=== PATIENT | male | born 1965 | race Caucasian/White ===

== ENCOUNTER 2018-01-17 15:59 | Emergency (ER) | payer OTHER ==
[~2018-01-17] VITALS: Ht 170.2 cm; Wt 70.3 kg
[~2018-01-17 15:59] MED LIST: ALBUTEROL0.09 MG/A1 INH; ALPRAZOLAM1 M2 PO; AMITIZA24 MCG PO; ASPIRIN EC81 M1 PO; CYCLOBENZAPRINE10 M1 PO; DAILY VALUE1 EACH PO; FIBER625 MG PO; FOLIC ACID0.4 M1 PO; HYDROMORPHONE HC4 M1; LIDODERM1 EACH TOP; MEDROL DOSEPAK1 PAC PO; MOBIC15 M1 PO; NEURONTIN800 M2 PO; OXYCODONE HCL30 MG PO; OXYCONTIN (MONO40 MG PO; ROBITUSSIN W/CO10 ML PO; SERTRALINE HCL50 MG PO; SUMATRIPTAN SU100 M1 PO; SUMAVEL DO6 MG/0.5 M IM; TESSALON PERLE100 MG PO; VITAMIN C500 M6 PO; ZITHROMAX Z-PA250 M1 PO
[2018-01-17 16:16] VITALS: BP 120/63
--- NOTE | 2018-01-17 17:05 | RADIOLOGY REPORT ---
EXAMINATION: 1. Chest. 2. Bilateral ribs. CLINICAL INFORMATION: Fall. COMPARISON: Chest x-ray 01/25/2015 TECHNIQUE: 1. Chest. 2 views 2. Bilateral ribs: Expiratory PA chest. 3 views of the right ribs. 3 views of left ribs. FINDINGS: 1. Chest. Lungs are clear. No consolidation, pneumothorax, or pleural effusion. The cardiomediastinal silhouette and pulmonary vasculature are normal. There is orthopedic anchor present in the left glenoid of the shoulder 2. Bilateral ribs: There is no acute fracture. There are bilateral old healed rib fractures. There is healed fracture of the left seventh eighth and ninth ribs. There is a radiolucency for fracture transverse of the posterior right ninth rib but this has sclerotic margins consistent with a chronic nonunited fracture or subacute fracture. There is an adjacent healed fracture of the right ninth rib with callus formation. IMPRESSION: 1. No acute change of chest. 2. No acute fracture. There are bilateral healed rib fractures. The right posterior ninth rib has a subacute or chronic nonunited fracture.
--- NOTE | 2018-01-17 17:33 | RADIOLOGY REPORT ---
EXAMINATION: XR LUMBOSACRAL SPINE CLINICAL INFORMATION: Pain after fall. Evaluate lumbar spine and sacrum. COMPARISON: Lumbar MRI from 08/23/2017. TECHNIQUE: 4 views of the lumbosacral spine were obtained. FINDINGS: There are mild degenerative changes in the partially visualized lower thoracic spine. The lumbar vertebra have well preserved height and alignment. No evidence of acute fracture in the anterior or posterior elements. No evidence of spondylolysis, spondylolisthesis or vertebral compression fracture. There are anterior traction osteophytes at multiple levels of the lumbar spine. The L5-S1 disc space is chronically, mildly narrowed. There is chronic facet arthropathy of L4-L5. The sacrum, coccyx and sacroiliac joints are intact. IMPRESSION: 1. No acute findings within the degenerated lumbar spine compared to 08/23/2017. 2. The sacrum and coccyx are intact.
--- NOTE | 2018-01-17 18:57 | ED GENERAL ADULT ---
History of Present Illness General Chief Complaint: Lower Extremity Injury Stated Complaint: FELL WEDNESDAY, PAIN TO LOWER BACK Source: patient Exam Limitations: no limitations Vital Signs & Intake/Output Vital Signs & Intake/Output Vital Signs Date Time Temp Pulse Resp B/P B/P Pulse O2 O2 Flow FiO2 Mean Ox Delivery Rate 01/17 1616 96.7 87 18 120/63 97 Room Air Allergies Coded Allergies: No Known Allergies (05/21/17) Reconcile Medications Alprazolam 1 MG TABLET 1 TAB PO TID PRN ANXIETY (Reported) Ascorbate Calcium (Vitamin C) 500 MG TABLET 1 TAB PO DAILY SUPPLEMENT ( Reported) Aspirin (Ecotrin*) 81 MG TABLET.DR 1 TAB PO EOD HEART/BLOOD (Reported) Cyclobenzaprine HCl 10 MG TABLET 1 TAB PO TID PRN MUSCLE RELAXANT MAY CAUSE DROWSINESS Folic Acid 0.4 MG TABLET 1 TAB PO DAILY SUPPLEMENT (Reported) Gabapentin (Neurontin) 800 MG TABLET 1 TAB PO QHS SLEEP (Reported) Hydromorphone HCl (Unknown Strength) TABLET (Unknown Dose) UNKNOWN (Reported) Lidocaine (Lidoderm) 1 EACH ADH..PATCH 1 PAT TOP DAILY PRN pain may wear up to 12 hours Lubiprostone (Amitiza) 24 MCG CAPSULE 1 CAP PO BID PRN GI (Reported) Meloxicam (Mobic) 15 MG TABLET 1 TAB PO DAILY PRN PAIN/INFLAMMATION Multivitamin (Multi-Day Vitamins) 1 EACH TABLET 1 TAB PO DAILY SUPPLEMENT ( Reported) OXYCODONE HCL (Oxycodone HCl) 30 MG TABLET 1 TAB PO 4 TIMES/DAY PAIN ( Reported) Oxycodone HCL (Oxycontin (Monograph Only)) 40 MG TAB.ER.12H 1 TAB PO TID PAIN (Reported) Polycarbophil (Fiber) (Unknown Strength) TABLET (Unknown Dose) PO DAILY SUPPLEMENT (Reported) Sertraline HCl 50 MG TABLET 1 TAB PO DAILY MENTAL HEALTH (Reported) Sumatriptan Succinate (Sumavel Dosepro) 6 MG/0.5 ML NDL.FR.INJ 6 MG IM PRN MIGRAINES (Reported) Sumatriptan Succinate 100 MG TABLET 1 TAB PO AD PRN MIGRAINES (Reported) may repeat in 2 hours; do not exceed 200 mg in 24 hours Triage Note: PT TO ER C/C "MY SAID WHILE I WAS HAVING A NIGHT TERROR 2 NIGHTS AGO I STOOD ON MY HEAD AND SLAMMED BY BODY ON THE GROUND". NOW PATIENT STATES HE HAS RIGHT LOW BACK/RIB PAIN. PATIENT STATES HE HAS TOTAL NUMBNESS TO RIGHT LEG. STATES HE HAS BEEN SOAKING SELF IN TUB FOR PAIN RELIEF Triage Nurses Notes Reviewed? yes Onset: Abrupt Duration: day(s): Timing: constant HPI: 52 y/o male with h/o PTSD, depression, cluster headaches, multiple prior fx's presenting with low back pain and bilateral flank pain s/p fall out of bed x3 days ago. Reports he was having a nightmare 2/2 his PTSD and threw himself out of bed. Reports his body was slammed onto the floor, +head stike, but no LOC. Denies SINCLAIR, nausea, vomiting, visual changes. Not on any AC. Pt also endorses intermittent numbness and presthesias to the RLE. Denies urinary/bowel incontinence or retention. No saddle anesthesia. Has not been using any OTC meds for pain relief. (Genesis Gary) Past History Travel History Traveled to [place] past 21 day No Medical History Any Pertinent Medical History? 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 No (Genesis Gary) Review of Systems Review of Systems Constitutional: Reports: no symptoms. EENTM: Reports: no symptoms. Respiratory: Reports: no symptoms. Cardiovascular: Reports: no symptoms. GI: Reports: no symptoms. Genitourinary: Reports: no symptoms. Musculoskeletal: Reports: see HPI, back pain. Denies: neck pain. Skin: Reports: no symptoms. Neurological/Psychological: Reports: no symptoms. Hematologic/Endocrine: Reports: no symptoms. Immunologic/Allergic: Reports: no symptoms. (Genesis Gary) Physical Exam Physical Exam General Appearance: well developed/nourished, no apparent distress, alert, awake , comfortable Head: atraumatic, normal appearance Eyes: Bilateral: normal appearance, PERRL, EOMI. Ears, Nose, Throat: normal ENT inspection Neck: normal inspection, full range of motion, no midline tenderness Respiratory: normal breath sounds, chest non-tender, lungs clear, TTP over bilateral flanks, over both the ribs and intercostal muscles at multiple levels. 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 Skin: intact, normal color, warm/dry Core Measures ACS in differential dx? No CVA/TIA Diagnosis: No Sepsis Present: No Sepsis Focused Exam Completed? No (Genesis Gary) Progress Differential Diagnoses I considered the following diagnoses in my evaluation of the patient: [back contusion vs vertebral fx vs sacral fx vs radiculopathy vs rib contusion vs rib fx] Plan of Care: X-rays shows no acute fx, remarkable for multiple old rib fx's. Likely with back and flank contusions. Counseled on supportive care and ibuprofen use. Likely with radiculopathy to RLE, but because symptoms are intermittent not given course of steroids at this time. Will f/u with PMD and given strict return precautions. Initial ED EKG: none (Genesis Gary) Departure Departure Disposition: HOME OR SELF CARE Condition: Stable Clinical Impression Primary Impression: Back pain Secondary Impressions: Fall, Flank pain Referrals: Pola Oviedo DO (PCP/Family) Additional Instructions: Use ibuprofen as needed for pain. Follow up with your primary care provider for re-evaluation. Return to the emergency department for any new or worsening symptoms. Departure Forms: Customer Survey General Discharge Information (Genesis Gary) PA/ROBOTICS ENGINEER Co-Sign Statement Statement: ED Attending supervision documentation- [] I saw and evaluated the patient. I have also reviewed all the pertinent lab results and diagnostic results. I agree with the findings and the plan of care as documented in the GEOVANNI's/ROBOTICS ENGINEER's documentation. [X] I have reviewed the ED Record and agree with the PA's/ROBOTICS ENGINEER's documentation. [] Additions or exceptions (if any) to the PAs/ROBOTICS ENGINEER's note and plan are summarized below: [] (Mandi HALL,Blue Johnson) Critical Care Note Critical Care Note Critical Care Time: non-applicable (Genesis Gary)
[2018-04-07] MEDS ORDERED: HYDROCODON-ACE1 EAC1 PO (21:13)
[2018-04-07] MEDS ORDERED: CYCLOBENZAPRINE10 M1 PO (21:13)
[2018-04-07] MEDS ORDERED: ALPRAZOLAM2 M2 PO (21:13)
== END 2018-01-17 19:09 ==
LOC: ERH 15:59
DX: M54.5 Low back pain (principal); R10.32 Left lower quadrant pain; R10.31 Right lower quadrant pain
CPT/HCPCS: 71046; 71111; 72110

== ENCOUNTER 2018-01-25 23:18 | Inpatient (IN) | payer OTHER ==
[~2018-01-25] VITALS: Ht 165.1 cm; Wt 72.7 kg
[2018-01-26] VITALS: BP 117/80
[2018-01-26 00:09] LABS: ABSOLUTE BASOPHIL COUNT 0 /CUMM (0.0-0.2); ABSOLUTE EOSINOPHIL COUNT 0.1 /CUMM (0.0-0.7); ABSOLUTE GRANULOCYTE CT 7.5 /CUMM (1.4-6.5); ABSOLUTE LYMPH COUNT 3.1 /CUMM (1.2-3.4); ABSOLUTE MONOCYTE COUNT 0.8 /CUMM (0.10-0.60); BASOPHIL % 0.2 % (0.0-2.0); EOSINOPHIL % 1.2 % (0-5); GRANULOCYTE % 64.7 % (42.2-75.2); HEMATOCRIT 38.1 % (42-52); MEAN CORPUSCULAR HGB 29.1 PG (27.0-31.0); MEAN CORPUSCULAR HGB CONC 33.3 G/DL (33.0-37.0); MEAN CORPUSCULAR VOLUME 87.4 FL (80.0-94.0); MEAN PLATELET VOLUME 7.2 FL (7.4-10.4); PLATELET COUNT 373 /CUMM (130-400); RBC DISTRIBUTION WIDTH 13.8 % (11.5-14.5); RED BLOOD CELL CT 4.36 /CUMM (4.70-6.10); WHITE BLOOD CELL COUNT 11.6 /CUMM (4.8-10.8)
--- NOTE | 2018-01-26 00:16 | ED GENERAL ADULT ---
History of Present Illness General Chief Complaint: ETOH/Drug Related Complaint Stated Complaint: HERE FOR DETOX FROM ALCOHOL, BENZOS, AND PAIN MEDS Source: patient, old records Exam Limitations: no limitations Vital Signs & Intake/Output Vital Signs & Intake/Output Vital Signs Date Time Temp Pulse Resp B/P B/P Pulse O2 O2 Flow FiO2 Mean Ox Delivery Rate 01/27 0328 98.9 96 18 108/64 97 Room Air 01/27 0324 98.8 96 16 108/64 01/27 0042 99.4 107 18 116/68 97 Room Air 01/27 0030 99.4 107 18 116/68 01/26 2240 99.1 75 18 113/65 98 Room Air 01/26 2237 99.1 75 18 113/65 01/26 2025 98.9 90 18 112/78 01/26 202 98.9 90 18 112/78 97 Room Air 01/26 1236 97.6 74 18 109/61 98 Room Air 01/26 1151 97.3 77 18 113/55 98 Room Air 01/26 0955 97.9 78 18 104/54 98 01/26 0600 97.8 66 18 102/66 01/26 0600 97.8 66 18 102/66 98 Room Air ED Intake and Output 01/27 0000 01/26 1200 Intake Total Output Total Balance Patient 155 lb Weight Allergies Coded Allergies: No Known Allergies (05/21/17) Triage Nurses Notes Reviewed? yes HPI: Patient presents requesting detox from alcohol. Patient states that he also abuses opiates and benzos. His last use of benzos was 5 days ago. Patient states that he had a withdrawal seizure approximately 5 years ago and does not know if it was because of withdrawal from alcohol over from withdrawal from the benzos. Patient also thinks that he might of had a seizure this morning. Patient states he remembers being upstairs in the next thing he knew he was downstairs with a bloody nose. Patient does not know what happened in between. Patient currently just feels tremulous. He feels very anxious. There is no nausea or vomiting. He denies any chest pain. There is no suicidal or homicidal ideations. (Mandi HALL,Blue Johnson) Reconcile Medications Alprazolam 1 MG TABLET 1 TAB PO TID PRN ANXIETY (Reported) Ascorbate Calcium (Vitamin C) 500 MG TABLET 1 TAB PO DAILY SUPPLEMENT ( Reported) Aspirin (Ecotrin*) 81 MG TABLET. 1 TAB PO EOD HEART/BLOOD (Reported) Folic Acid 0.4 MG TABLET 1 TAB PO DAILY SUPPLEMENT (Reported) Multivitamin (Daily Value) 1 EACH TABLET 1 TAB PO DAILY VITAMIN SUPPORT ( Reported) (Miguel Heredia DO) Past History Travel History Traveled to [place] past 21 day No Medical History Any Pertinent Medical History? 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 No (Mandi HALL,Blue Johnson) Review of Systems Review of Systems Constitutional: Reports: no symptoms. EENTM: Reports: no symptoms. Respiratory: Reports: no symptoms. Cardiovascular: Reports: no symptoms. GI: Reports: no symptoms. Genitourinary: Reports: no symptoms. Musculoskeletal: Reports: no symptoms. Skin: Reports: no symptoms. Neurological/Psychological: Reports: see HPI, anxiety. Hematologic/Endocrine: Reports: no symptoms. Immunologic/Allergic: Reports: no symptoms. All Other Systems: Reviewed and Negative (Mandi HALL,Bule Johnson) Physical Exam Physical Exam General Appearance: well developed/nourished, alert, awake, anxious, mild distress Head: atraumatic, normal appearance Eyes: Bilateral: PERRL, EOMI. Ears, Nose, Throat: normal pharynx, normal ENT inspection, hearing grossly normal Neck: normal inspection, supple, full range of motion Respiratory: normal breath sounds, chest non-tender, no respiratory distress, lungs clear Cardiovascular: regular rate/rhythm, normal peripheral pulses Gastrointestinal: normal bowel sounds, soft, non-tender Back: normal inspection, normal range of motion Extremities: normal inspection, normal capillary refill, normal range of motion, no edema Neurologic/Psych: no motor/sensory deficits, awake, alert, oriented x 3, normal mood/affect Skin: intact, normal color, warm/dry Core Measures ACS in differential dx? No CVA/TIA Diagnosis: No Sepsis Present: No Sepsis Focused Exam Completed? No (Blue Raymond MD) Progress Differential Diagnoses I considered the following diagnoses in my evaluation of the patient: [ALCOHOL DEPENDENCY WITH WOTHDRAWAL, BENZO DEPENDENCY WOTH WITHDRAWAL, OPIATE DEPENDENCY WITH WITHDRAWAL] Plan of Care: Orders Procedure Date/time Status CASE MANAGEMENT CONSULT 01/27 0533 Active Current Medications Sig/Tonya Start time Last Medication Dose Stop Time Status Admin Lorazepam 1 MG Q2 PRN 01/27 0345 UNVr 01/27 (Ativan) 0338 Lorazepam 2 MG Q2P PRN 01/27 0345 UNVr (Ativan) Gabapentin 300 MG Q8 01/26 0047 UNVr 01/26 (Neurontin) 2236 Initial ED EKG: none Hand-Off Endorsed To: Miguel Heredia DO Endorsed Time: 07 Pending: consult, other (RE-EVAL) (Blue Raymond MD) Differential Diagnoses I considered the following diagnoses in my evaluation of the patient: Hand-Off Endorsed To: Blue Raymond MD Endorsed Time: 07 Pending: other (case management,CIWA) (Issac Holcomb MD) Departure Departure Disposition: STILL A PATIENT Condition: Stable Clinical Impression Primary Impression: Alcohol dependency Secondary Impressions: Benzodiazepine abuse Referrals: Pola Oviedo DO (PCP/Family) Departure Forms: Customer Survey General Discharge Information (Blue Raymond MD) Departure Comments 01/26/18 7:18 PM The CIWA scores have been low. Motrin given for the chronic hip pain. He will try to call [facility] for intake. The patient was signed out to Dr. Holcomb at 7:20 PM. (Miguel Heredia DO) Critical Care Note Critical Care Note Critical Care Time: non-applicable (Blue Raymond MD) Critical Care Note Critical Care Note Critical Care Time: non-applicable (Blue Raymond MD)
[2018-01-26 02:00] VITALS: BP 115/70
[2018-01-26 04:03] VITALS: BP 113/65
[2018-01-26 06:00] VITALS: BP 102/66
[2018-01-26 20:25] VITALS: BP 112/78
[2018-01-26 22:37] VITALS: BP 113/65
[2018-01-27] VITALS (9 sets, daily range): BP systolic 98–122; BP diastolic 57–84
--- NOTE | 2018-01-27 13:37 | History & Physical ---
[facility]: General Information and HPI MD Statement: I have seen and personally examined MARTIN MONTALVO and documented this H&P. The patient is a 52 year old M who presented with a patient stated chief complaint of anxiety, tremors, nausea, vomiting for last couple of days. []. Source of Information: patient, old records Exam Limitations: no limitations History of Present Illness: 52 YO M nonsmoker with PMH of cluster headache, bronchitis, depression, PTSD, opiate abuse, benzo abuse, cannabis abuse and multiple surgeries due to trauma came to ED for alcohol detox. Patient reported that he is drinking alcohol since the age of 13 years. He is drinking 6 packs of beer or whiskey everyday. Patient reported that last time he drank home last Wednesday between 5 PM to 11 PM. According to patient he drank 6 packs of beer and 1 paint of whiskey. On Wednesday he he decided to quit drinking and came to ED requesting alcohol detox. Before coming to the hospital patient reported that he thought hurting himself but there was no plan. Since Wednesday he is having anxiety, tremors, nausea and he threw up a couple of times. Patient also reported epigastric pain 4/10 nonradiating and increasing with eating and drinking. Patient also reported having headache 7/10. Patient denied chest pain, palpitation, blood in vomitus, hemoptysis, hematuria, chills, fever, orthopnea, shortness of breath, suicidal ideation and dysuria. Patient also reported that he has PTSD and he is following his psychiatrist who was prescribing him Xanax to treat PTSD. 15 years back he developed withdrawal seizures from Xanax and he was admitted to ICU and intubated. He never been admitted to hospital for alcohol detox in the past. According to patient he never developed alcoholic-induced seizures in the past. According to patient he remained sober between last therapy in November but later on he again started to drink. In the past patient reported that he was on OxyContin 300 mg daily and oxycodone 3 mg 5 his hip and leg pain. For opiate prescription he was following a pain management clinic and then 12 years back they discontinued his opiates. ED course: Vitals: Temperature 97.8, pulse 66, respiratory rate 18, blood pressure 102/66, oxygen saturation 98% on room air Labs: WBC count 11.6, hemoglobin 12.7, hematocrit 38.1, platelet count 373, sodium 143, potassium 4.0, anion gap 13, BUN 24, creatinine 1.0, glucose 71, AST 18, ALT 27, alkaline phosphatase 82, total bilirubin 0.3 Allergies/Medications Allergies: Coded Allergies: No Known Allergies (05/21/17) Home Med list Alprazolam 1 MG TABLET 1 TAB PO TID PRN ANXIETY (Reported) Ascorbate Calcium (Vitamin C) 500 MG TABLET 1 TAB PO DAILY SUPPLEMENT ( Reported) Aspirin (Ecotrin*) 81 MG TABLET.DR 1 TAB PO EOD HEART/BLOOD (Reported) Folic Acid 0.4 MG TABLET 1 TAB PO DAILY SUPPLEMENT (Reported) Multivitamin (Daily Value) 1 EACH TABLET 1 TAB PO DAILY VITAMIN SUPPORT ( Reported) Past History Travel History Traveled to [place] past 21 day No Medical History Neurological: CLUSTER HEADACHES EENT: NONE Cardiovascular: NONE Respiratory: bronchitis Gastrointestinal: NONE Hepatic: NONE Renal: NONE Musculoskeletal: fracture, R LEG FX/TITANIUM JESSICA AVASCULAR NECROSIS Psychiatric: depression, PTSD Endocrine: NONE Blood Disorders: NONE Cancer(s): NONE 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 EENTM: Reports: no symptoms. Cardiovascular: Denies: chest pain, palpitations, syncope. Respiratory: Denies: cough, short of breath, sputum production. GI: Reports: abdominal pain, constipation, nausea, vomiting. Denies: diarrhea, bloody stool. Genitourinary: Reports: no symptoms. Musculoskeletal: Reports: no symptoms. Neurological/Psychological: Reports: anxiety. Exam & Diagnostic Data Last 24 Hrs of Vital Signs/I&O Vital Signs Date Time Temp Pulse Resp B/P B/P Pulse O2 O2 Flow FiO2 Mean Ox Delivery Rate 01/28 0530 98.4 72 18 116/72 97 Room Air 01/28 0130 98.8 78 18 118/72 98 Room Air 01/28 0000 98.6 77 18 120/70 01/27 2132 98.6 77 18 120/70 97 01/27 1752 97.8 85 20 120/84 98 01/27 1631 98.2 73 16 114/72 01/27 1631 98.2 73 16 114/72 99 Room Air 01/27 1436 98.0 77 20 113/72 98 01/27 1435 98.0 77 20 113/72 01/27 1221 98.6 78 20 122/70 98 01/27 1219 98.6 78 20 122/70 01/27 0830 98.0 78 18 98/57 97 01/27 0829 98.0 78 20 98/57 Intake & Output 01/28 0800 01/28 0000 01/27 1600 Intake Total 480 Output Total Balance 480 Intake, Oral 480 Patient 160 lb 161 lb Weight Weight Bed scale Measurement Method Physical Exam General Appearance Alert, Oriented X3, Cooperative Skin No Rashes Skin Temp/Moisture Exam: Warm/Dry Sepsis Skin Exam (color): Normal for Ethnicity HEENT Atraumatic, PERRLA, EOMI Neck Supple Cardiovascular Normal S1, Normal S2 Lungs Clear to Auscultation Abdomen Soft, No Tenderness Neurological Normal Speech, Strength at 5/5 X4 Ext, Normal Tone Extremities No Edema Assessment/Plan Assessment: 52 YO M nonsmoker with PMH of cluster headache, bronchitis, depression, PTSD and multiple surgeries due to trauma came to ED for alcohol detox. We will admit the patient on general medicine floor for following problems: Alcohol detox: -Keep him on CIWA protocol and we will give him 2 mg Ativan every 6 hourly. -Gentle IV hydration as needed -Zofran IV as needed for nausea and vomiting -Supplemental vitamin B12, folic acid and thiamine -Seizure precautions -Omeprazole for gastric ulcer prophylaxis History of PTSD: -Psychiatric consult DVT prophylaxis: Mechanical and subcutaneous Lovenox CODE STATUS: Full code As Ranked By This Provider Problem List: 1. Alcohol withdrawal Core Measures/Misc (05/30) Acute Coronary Syndrome ACS Diagnosis: No Congestive Heart Failure Congestive Heart Failure Diagnosis No Cerebrovascular Accident CVA/TIA Diagnosis: No VTE (View Protocol) VTE Risk Factors Age>40 No Mechanical VTE Prophylaxis d/t N/A MechProphylax Ordered No VTE Pharm Prophylaxis d/t NA PharmProphylax ordered Sepsis (View protocol) Sepsis Present: No Donita Tejada 01/27/18 1558: Resident Review Statement Resident Statement: examined this patient, discussed with technology internship, agreed with technology internship Other Findings: Patient is a 52-year-old gentleman with past medical history significant for PTSD alcohol abuse/withdrawal, benzos related seizures, multiple surgeries, history of opioid abuse presented to the ER requesting alcohol detox. Patient mentioned that he has been on Xanax 4 mg daily for PTSD, he stopped taking the medication this past Wednesday, was drinking heavily almost 6-12 cans of beer per day and 1 pint of whiskey per day. Patient reported that before coming to the ER he was having suicidal thoughts, denied any visual or auditory hallucinations, had bilateral hand tremors with sweating, palpitations and shortness of breath. He got extremely anxious,and came to the ER on Wednesday requesting detox. As mentioned above patient has a history of benzos withdrawal related seizures many years ago requiring hospitalization. Since then patient has been taking Xanax 8 mg(now 4 mg) prescribed by her psychiatrist. He also had a history of Vitals on admission unremarkable temperature 98.8, pulse 90, respiratory rate 18 , blood pressure 112/78 on room air General Appearance: Alert, appears slightly anxious with bilateral hand tremors Skin: Grossly normal HEENT: PEERLA Neck: Supple, No JVD Cardiovascular: Regular Rate, Normal S1, Normal S2, No Murmurs Lungs: Clear to Auscultation, Normal Air Movement Abdomen: Normal Bowel Sounds, slight abdominal tenderness. Neurological: Normal Speech, Strength at 5/5 X4 Ext, Cranial Nerves 3-12 NL, Reflexes 2+ Extremities: No edema bilaterally Vascular: Normal Pulses Pertinent labs on admission slight leukocytosis at 11.6 without any bandemia Normal chemistries with slightly elevated BUN likely due to dehydration Assessment Alcohol dependence/withdrawl. Benzos related seizures History of opioid abuse History of PTSD History of anxiety depression History of cluster headaches History of cannabis abuse plan Alcohol dependence/withdrawl. * Admit the patient to the GenMed floor * Start the patient on scheduled Ativan 2 mg every 6 hours along with Ativan as needed per [facility] protocol. * Start thiamine and folate and vitamin B12's * Seizure and fall precautions * Obtain psych consult in the morning * Social consult * Promote oral hydration * Zofran as needed for nausea * History of benzos related to seizures * Hold Xanax during the hospitalization continue with Ativan. DVT prophylaxis with Lovenox Pain control with Tylenol Patient is full code
--- NOTE | 2018-01-27 16:23 | Admission Certification ---
Admission Certification Certification Statement - As attending physician, I certify that at the time of - admission, based on clinical presentation, severity of - symptoms, need for further diagnostic testing and - therapeutic interventions, and risk of adverse outcomes - without in-hospital treatment, in my clinical assessment, - this patient requires an acute hospital stay for a minimum - of two nights or longer. I have also considered psychsocial - factors such as support system, advanced age, financial - issues, cognitive issues, and failed out-patient treatments, - past re-admission history, safety of patient, and lack of - compliance as applicable. Specific rationale supporting this admission is: Alcohol narcotic and benzo abuse
--- NOTE | 2018-01-27 16:23 | PN- Att Addend ---
Attending Addendum Attending Brief Note Patient seen and examined. Plan of care discussed with the medical team and the patient. Available lab work and radiology test reports were reviewed. Patient is a 52-year-old male who has been abusing OxyContin up to 80 mg daily, Xanax up to 8 mg daily which he stopped about 1 week ago and has been using alcohol in heavy amounts with about 6-12 cans of beer per day and 1 pint of whiskey per day. He never underwent a rehabilitation and now is interested in detox and rehabilitation of his drug and alcohol problems. Patient also carries a diagnosis of PTSD. He currently does not smoke and does not work and lives with his and children. Family hx was reviewed. Vital Signs Date Time Temp Pulse Resp B/P B/P Pulse O2 O2 Flow FiO2 Mean Ox Delivery Rate 01/27 1436 98.0 77 20 113/72 98 01/27 1435 98.0 77 20 113/72 01/27 1221 98.6 78 20 122/70 98 01/27 1219 98.6 78 20 122/70 01/27 0830 98.0 78 18 98/57 97 01/27 0829 98.0 78 20 98/57 01/27 0601 97.8 71 18 106/68 95 Room Air 01/27 0524 97.8 71 18 106/68 01/27 0328 98.9 96 18 108/64 97 Room Air 01/27 0324 98.8 96 16 108/64 01/27 0042 99.4 107 18 116/68 97 Room Air 01/27 0030 99.4 107 18 116/68 01/26 2240 99.1 75 18 113/65 98 Room Air 01/26 2237 99.1 75 18 113/65 01/26 2025 98.9 90 18 112/78 01/26 2025 98.9 90 18 112/78 97 Room Air Exam: General: Patient awake alert oriented without any distress; he is tremulous CVS: S1 plus S2 without any murmur or gallops Chest: Few scattered crepitation without any wheeze. There is no respiratory distress. Abdomen: Soft non-tender, bowel sound present, no guarding or rebound; tremors of both hands are noted SENIOR C DEVELOPER: Awake alert oriented without any focal neuro deficit and follows commands appropriately Extremities: No edema; no clubbing or cyanosis noted Laboratory Tests 01/26/18 0006: Urine Opiates Screen > 4000.00 H, Methadone Screen < 40, Barbiturate Screen < 60, Ur Phencyclidine Scrn < 6.00, Amphetamines Screen < 100, U Benzodiazepines Scrn < 85, Urine Cocaine Screen < 50, Urine Cannabis Screen > 80.00 H 01/25/18 2358: Anion Gap 13, Estimated GFR > 60, BUN/Creatinine Ratio 24.0, Glucose 71, Calcium 9.7, Total Bilirubin 0.3, AST 18, ALT 27, Alkaline Phosphatase 82, Total Protein 7.6, Albumin 4.5, Globulin 3.1, Albumin/Globulin Ratio 1.5, CBC w Diff NO MAN DIFF REQ, RBC 4.36 L, MCV 87.4, MCH 29.1, MCHC 33.3, RDW 13.8, MPV 7.2 L, Gran % 64.7, Lymphocytes % 26.6, Monocytes % 7.3, Eosinophils % 1.2, Basophils % 0.2, Absolute Granulocytes 7.5 H, Absolute Lymphocytes 3.1, Absolute Monocytes 0.8 H, Absolute Eosinophils 0.1, Absolute Basophils 0, Serum Alcohol < 10.0 Assessment * Alcohol abuse * Narcotic abuse with OxyContin * Residents been abuse with Xanax which he stopped about 7 days ago on his own * Cannabis abuse * History of PTSD * History of depression * History of cluster headaches Plan * [facility] protocol and start patient on 2 mg Ativan every 6 hours by mouth * 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
--- NOTE | 2018-01-27 17:23 | Incdntl Nt Psy ---
Incidental Note Notation: H & P request to see pt in am noted. DANITZA
[2018-01-28] VITALS (10 sets, daily range): BP systolic 116–122; BP diastolic 70–80
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
[2018-01-28 09:33] LABS: ABSOLUTE BASOPHIL COUNT 0 /CUMM (0.0-0.2); ABSOLUTE EOSINOPHIL COUNT 0.1 /CUMM (0.0-0.7); ABSOLUTE GRANULOCYTE CT 8.8 /CUMM (1.4-6.5); ABSOLUTE LYMPH COUNT 2.8 /CUMM (1.2-3.4); BASOPHIL % 0.4 % (0.0-2.0); EOSINOPHIL % 1.1 % (0-5); GRANULOCYTE % 68.4 % (42.2-75.2); HEMATOCRIT 41.4 % (42-52); MEAN CORPUSCULAR HGB 29.2 PG (27.0-31.0); MEAN CORPUSCULAR HGB CONC 33.1 G/DL (33.0-37.0); MEAN CORPUSCULAR VOLUME 88.2 FL (80.0-94.0); MEAN PLATELET VOLUME 7.8 FL (7.4-10.4); PLATELET COUNT 369 /CUMM (130-400); RBC DISTRIBUTION WIDTH 14.4 % (11.5-14.5); RED BLOOD CELL CT 4.69 /CUMM (4.70-6.10); WHITE BLOOD CELL COUNT 12.8 /CUMM (4.8-10.8)
--- NOTE | 2018-01-28 10:30 | PN- Att Addend ---
Attending Addendum Attending Brief Note Patient seen and examined. Plan of care discussed with the medical team and the patient. Available lab work and radiology test reports were reviewed. Patient appears fidgety and restless and anxious. He was not able to sleep last night. He has visible tremors of his hands. CIWA score range between 0-11. Exam: General: Patient awake alert oriented without any distress; he is tremulous CVS: S1 plus S2 without any murmur or gallops Chest: Few scattered crepitation without any wheeze. There is no respiratory distress. Abdomen: Soft non-tender, bowel sound present, no guarding or rebound; tremors of both hands are noted PRACTICE MANAGEMENT CONSULTANT: Awake alert oriented without any focal neuro deficit and follows commands appropriately Extremities: No edema; no clubbing or cyanosis noted Assessment Patient is a 52-year-old male who has been abusing OxyContin up to 80 mg daily, Xanax up to 8 mg daily which he stopped about 1 week ago and has been using alcohol in heavy amounts with about 6-12 cans of beer per day and 1 pint of whiskey per day. He never underwent a rehabilitation and now is interested in detox and rehabilitation of his drug and alcohol problems. Patient also carries a diagnosis of PTSD. 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 * Continue folic acid Current Medications Sig/Tonya Start time Last Medication Dose Route Stop Time Status Admin Acetaminophen 650 MG Q6 PRN 01/27 1515 AC PO Aspirin Buffered 81 MG DAILY 01/28 0900 AC PO Baclofen 10 MG ONCE ONE 01/28 0415 DC 01/28 PO 01/28 0416 0645 Diclofenac Sodium 1 TATIANA 4 TIMES/DAY PRN 01/28 0015 AC 01/28 TOP 0208 Enoxaparin Sodium 40 MG DAILY 01/28 0900 AC 01/28 SC 0939 Folic Acid 0 .STK-MED ONE 01/27 1605 DC PO Folic Acid 1 MG DAILY 01/27 1510 AC 01/28 PO 0937 Gabapentin 0 .STK-MED ONE 01/27 1438 DC PO Gabapentin 300 MG Q8 01/26 0047 DC 01/27 PO 1435 Lorazepam 3 MG Q6 01/28 1200 AC PO Lorazepam 2 MG Q6 01/27 1800 DC 01/28 PO 0645 Lorazepam 0 Q1P PRN 01/27 1600 AC 01/28 IV 0208 Lorazepam 1 MG Q2 PRN 01/27 0345 DC 01/27 PO 0605 Lorazepam 2 MG Q2P PRN 01/27 0345 DC PO Multivitamins 0 .STK-MED ONE 01/27 1605 DC PO Multivitamins 1 TAB DAILY 01/27 1514 AC 01/28 Therapeutic PO 0938 Thiamine HCl 0 .STK-MED ONE 01/27 1605 DC PO Thiamine HCl 100 MG DAILY 01/27 1510 AC 01/28 PO 0938 Laboratory Tests 01/28/18 0616: Anion Gap 13, Estimated GFR > 60, BUN/Creatinine Ratio 22.5, CBC w Diff NO MAN DIFF REQ, RBC 4.69 L, MCV 88.2, MCH 29.2, MCHC 33.1, RDW 14.4, MPV 7.8, Gran % 68.4, Lymphocytes % 22.2, Monocytes % 7.9, Eosinophils % 1.1, Basophils % 0.4, Absolute Granulocytes 8.8 H, Absolute Lymphocytes 2.8, Absolute Monocytes 1.0 H, Absolute Eosinophils 0.1, Absolute Basophils 0 01/26/18 0006: Urine Opiates Screen > 4000.00 H, Methadone Screen < 40, Barbiturate Screen < 60, Ur Phencyclidine Scrn < 6.00, Amphetamines Screen < 100, U Benzodiazepines Scrn < 85, Urine Cocaine Screen < 50, Urine Cannabis Screen > 80.00 H 01/25/18 8218: Anion Gap 13, Estimated GFR > 60, BUN/Creatinine Ratio 24.0, Glucose 71, Calcium 9.7, Total Bilirubin 0.3, AST 18, ALT 27, Alkaline Phosphatase 82, Total Protein 7.6, Albumin 4.5, Globulin 3.1, Albumin/Globulin Ratio 1.5, CBC w Diff NO MAN DIFF REQ, RBC 4.36 L, MCV 87.4, MCH 29.1, MCHC 33.3, RDW 13.8, MPV 7.2 L, Gran % 64.7, Lymphocytes % 26.6, Monocytes % 7.3, Eosinophils % 1.2, Basophils % 0.2, Absolute Granulocytes 7.5 H, Absolute Lymphocytes 3.1, Absolute Monocytes 0.8 H, Absolute Eosinophils 0.1, Absolute Basophils 0, Serum Alcohol < 10.0 Vital Signs Date Time Temp Pulse Resp B/P B/P Pulse O2 O2 Flow FiO2 Mean Ox Delivery Rate 01/28 0941 98.0 77 20 122/70 96 Room Air 01/28 0530 98.4 72 18 116/72 97 Room Air 01/28 0130 98.8 78 18 118/72 98 Room Air 01/28 0000 98.6 77 18 120/70 01/27 2132 98.6 77 18 120/70 97 01/27 1752 97.8 85 20 120/84 98 01/27 1631 98.2 73 16 114/72 01/27 1631 98.2 73 16 114/72 99 Room Air 01/27 1436 98.0 77 20 113/72 98 01/27 1435 98.0 77 20 113/72 01/27 1221 98.6 78 20 122/70 98 01/27 1219 98.6 78 20 122/70 Intake & Output 01/28 1600 01/28 0800 01/28 0000 Intake Total 480 Output Total Balance 480 Intake, Oral 480 Patient 160 lb 161 lb Weight Weight Bed scale Measurement Method
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
--- NOTE | 2018-01-28 16:23 | Incdntl Nt Psy ---
Incidental Note Notation: I spoke to Maria Del Carmen regarding patient's safety. She is moving out but has not heard him make concerning statements regarding hurting himself or others and he has not texted her anything concerning. He is using drugs and becomes belligerent when he is out.
[2018-01-29] VITALS (8 sets, daily range): BP systolic 106–134; BP diastolic 64–88
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
[2018-01-30] VITALS (9 sets, daily range): BP systolic 100–134; BP diastolic 54–90
--- NOTE | 2018-01-30 10:15 | PN- Housestaff ---
Bhavin HALL,Georgette 01/30/18 1015: Subjective Follow-up For: Alcohol withdrawal PTSD Anxiety Subjective: Patient states that he is feeling more anxious, still shaky from yesterday, a little nauseous, continues to have on and off abdominal pain, 3 episodes of diarrhea today, current headache, patient is tolerating diet. His last CIWA score was 8 for nausea, vomiting, tremor, anxiety. Review of Systems Constitutional: Reports: no symptoms. EENTM: Reports: no symptoms. Cardiovascular: Reports: no symptoms. Respiratory: Reports: no symptoms. Gastrointestinal: Reports: abdominal pain, diarrhea, nausea. Genitourinary: Reports: no symptoms. Musculoskeletal: Reports: back pain. Skin: Reports: no symptoms. Neurological/Psychological: Reports: anxiety, headache. Objective Last 24 Hrs of Vital Signs/I&O Vital Signs Date Time Temp Pulse Resp B/P B/P Pulse O2 O2 Flow FiO2 Mean Ox Delivery Rate 01/30 1158 98.0 91 20 100/60 97 01/30 1041 98.5 74 18 100/60 96 01/30 0800 Room Air 01/30 0721 97.8 88 16 100/66 99 Room Air 01/30 0224 98.9 84 18 120/90 94 Room Air 01/30 0200 98.9 84 18 120/90 01/30 0142 99.7 96 20 134/80 94 Room Air 01/30 0100 99.7 96 20 130/80 01/29 2235 97.9 86 16 106/64 99 Room Air 01/29 2200 97.7 86 16 106/64 01/29 1913 98.9 88 16 120/80 98 Room Air 01/29 1730 98.7 74 18 110/88 01/29 1425 97.8 81 18 134/84 97 Room Air Intake & Output 01/30 1600 01/30 0800 01/30 0000 Intake Total 510 620 Output Total Balance 510 620 Intake, IV 30 20 Intake, Oral 480 600 Physical Exam General Appearance: Alert, Oriented X3, Cooperative, No Acute Distress Skin: No Rashes, No Breakdown, No Significant Lesion Skin Temp/Moisture Exam: Warm/Dry Sepsis Skin Exam (color): Normal for Ethnicity HEENT: Atraumatic, EOMI, Mucous Membr. moist/pink Cardiovascular: Regular Rate, Normal S1, Normal S2, No Murmurs Lungs: Clear to Auscultation, Normal Air Movement Abdomen: Normal Bowel Sounds, No Hepatospenomegaly, No Masses, tender to palpation in the epigastric area Neurological: Normal Speech Extremities: No Clubbing, No Cyanosis, No Edema, Normal Pulses, No Tenderness/ Swelling Current Medications: Current Medications Sig/Tonya Start time Last Medication Dose Route Stop Time Status Admin Acetaminophen 650 MG .STK-MED ONE 01/29 2129 DC PO 01/29 2130 Acetaminophen 650 MG Q6 PRN 01/27 1515 AC 01/29 PO 2131 Aspirin Buffered 81 MG DAILY 01/28 0900 AC 01/30 PO 0851 Baclofen 10 MG TID 01/30 1034 AC 01/30 PO 1057 Baclofen 10 MG ONCE ONE 01/290 DC 01/29 PO 01/29 Diclofenac Sodium 1 TATIANA 4 TIMES/DAY PRN 01/28 0015 AC 01/28 TOP 0208 Enoxaparin Sodium 40 MG DAILY 01/28 0900 AC 01/30 SC 0851 Folic Acid 1 MG DAILY 01/27 1510 AC 01/30 PO 0851 Lorazepam 3 MG Q6 01/28 1200 AC 01/30 PO 1207 Lorazepam 0 Q1P PRN 01/27 1600 AC 01/30 IV 0116 Multivitamins 1 TAB DAILY 01/27 1514 AC 01/30 Therapeutic PO 0851 Omeprazole 40 MG DAILY AC 01/30 1034 AC 01/30 PO 1057 Ondansetron HCl 4 MG ONCE ONE 01/30 1045 DC 01/30 PO 01/30 1046 1057 Thiamine HCl 100 MG DAILY 01/27 1510 AC 01/30 PO 0851 Orders CIWA Score (last 24 hrs): 8 Assessment/Plan Assessment: 52 YO M nonsmoker with PMH of cluster headache, bronchitis, depression, PTSD and multiple surgeries due to trauma came to ED for alcohol detox. We are seeing the patient for following problems: Alcohol detox: -Keep him on CIWA protocol and we will continue Ativan to 3 mg every 6 hourly considering his anxiety and tremors that are continuing -We will encourage the patient to drink orally. -Zofran for nausea and vomiting -Supplemental vitamin B12, folic acid and thiamine -Seizure precautions -Hepatitis panel is negative Epigastric pain: - states that he gets this kind of pain usually a day after he has alcohol binges. This is most likely gastritis and we will start omeprazole 40 mg daily. Anxiety: -Probably due to alcohol withdrawal or could be generalized anxiety disorder. -As per psychiatry the patient's Maria Del Carmen, who is moving out, states that he has never made a concerning statements regarding hurting himself or others. -Patient is already getting Ativan History of PTSD: -Patient was on Xanax in the past for PTSD and he recently discontinued Xanax a week ago. He is to have Ativan discontinued upon discharge. -Follow-up psychiatry recommendations -Headache: has normal liver function tests so we will dose Tylenol 650 mg for his headaches DVT prophylaxis: Mechanical and subcutaneous Lovenox CODE STATUS: Full code Problem List: 1. PTSD (post-traumatic stress disorder) 2. Anxiety 3. Alcohol withdrawal Pain Ratin Pain Location: back Pain Goal: Pain 4 or less Pain Plan: pathway Tomorrow's Labs & Rationales: isabel Stoddard MD,Amir 01/30/18 1201: Attending MD Review Statement Attending Statement Attending MD Statement: examined this patient, discuss w/resident/PA/BEEF BREAKER, agreed w/resident/PA/BEEF BREAKER, reviewed EMR data (avail), discussed with nursing Attending Assessment/Plan: Reports doing better, no overnight. Tolerating meds OK --cont to taper ativan as per CIWA protocol --advised to f/u with Psych as outpt
[2018-01-31 02:25] VITALS: BP 112/60
[2018-01-31 06:40] VITALS: BP 104/70
--- NOTE | 2018-01-31 07:20 | PN- Housestaff ---
Subjective Follow-up For: Alcohol detox Anxiety and depression PTSD Subjective: No overnight events. Patient remained afebrile overnight. Seen and examined this morning. He denied any chest pain, short of breath, nausea, vomiting, abdominal pain dysuria. Patient reported that he is feeling better. His anxiety has gone. His CIWA score remained low. We will discharge him today to complete his detox within 2 days after discharge. Patient was instructed to follow psychiatry as outpatient in [facility] for alcohol dependency. Review of Systems Constitutional: Denies: chills, fever. EENTM: Reports: no symptoms. Cardiovascular: Denies: chest pain, palpitations, syncope. Respiratory: Denies: cough, short of breath, sputum production. Gastrointestinal: Denies: abdominal pain, constipation, diarrhea, nausea, vomiting. Genitourinary: Reports: no symptoms. Neurological/Psychological: Reports: no symptoms. Objective Last 24 Hrs of Vital Signs/I&O Vital Signs Date Time Temp Pulse Resp B/P B/P Pulse O2 O2 Flow FiO2 Mean Ox Delivery Rate 01/31 0640 97.7 58 16 104/70 98 Room Air 01/31 0225 98.9 88 18 112/60 98 Room Air 01/30 2212 99.3 87 18 110/54 98 Room Air 01/30 1429 99.0 107 20 100/60 98 Intake & Output 01/31 1600 01/31 0800 01/31 0000 Intake Total 240 480 Output Total Balance 240 480 Intake, Oral 240 480 Physical Exam General Appearance: Alert, Oriented X3, Cooperative Skin Temp/Moisture Exam: Warm/Dry Sepsis Skin Exam (color): Normal for Ethnicity HEENT: Atraumatic, PERRLA, EOMI Neck: Supple Cardiovascular: Normal S1, Normal S2 Lungs: Clear to Auscultation Abdomen: Soft, No Tenderness Neurological: Normal Gait, Normal Speech, Strength at 5/5 X4 Ext Extremities: No Edema Assessment/Plan Assessment: 52 YO M nonsmoker with PMH of cluster headache, bronchitis, depression, PTSD and multiple surgeries due to trauma came to ED for alcohol detox. We are seeing the patient for following problems: Alcohol detox: -Keep him on CIWA protocol and we will continue Ativan to 1 mg every 8 hourly considering his anxiety and tremors that are continuing. We are going to discharge him today patient will get 1 mg twice a day tomorrow and 0.5 twice a day thereafter tomorrow and will complete his detox. -We will encourage the patient to drink orally. -Zofran for nausea and vomiting -Supplemental vitamin B12, folic acid and thiamine -Hepatitis panel is negative Epigastric pain: -Continue omeprazole. -Possibly due to alcoholic gastritis. Anxiety: -Probably due to alcohol withdrawal or could be generalized anxiety disorder. -As per psychiatry the patient's Maria Del Carmen, who is moving out, states that he has never made a concerning statements regarding hurting himself or others. History of PTSD: -Patient was on Xanax in the past for PTSD and he recently discontinued Xanax a week ago. He is to have Ativan discontinued upon discharge. -Follow-up psychiatry recommendations DVT prophylaxis: Mechanical and subcutaneous Lovenox CODE STATUS: Full code Problem List: 1. PTSD (post-traumatic stress disorder) 2. Alcohol withdrawal 3. Anxiety Pain Ratin Pain Location: none Pain Goal: Remain pain free Pain Plan: pain pathway Tomorrow's Labs & Rationales: none
[2018-01-31 08:43] LABS: ABSOLUTE BASOPHIL COUNT 0 /CUMM (0.0-0.2); ABSOLUTE EOSINOPHIL COUNT 0.2 /CUMM (0.0-0.7); ABSOLUTE GRANULOCYTE CT 7.4 /CUMM (1.4-6.5); ABSOLUTE MONOCYTE COUNT 0.8 /CUMM (0.10-0.60); BASOPHIL % 0.4 % (0.0-2.0); EOSINOPHIL % 1.5 % (0-5); GRANULOCYTE % 64.7 % (42.2-75.2); HEMATOCRIT 40.7 % (42-52); MEAN CORPUSCULAR HGB 29.3 PG (27.0-31.0); MEAN CORPUSCULAR HGB CONC 33.2 G/DL (33.0-37.0); MEAN CORPUSCULAR VOLUME 88.2 FL (80.0-94.0); PLATELET COUNT 327 /CUMM (130-400); RBC DISTRIBUTION WIDTH 14.5 % (11.5-14.5); RED BLOOD CELL CT 4.61 /CUMM (4.70-6.10); WHITE BLOOD CELL COUNT 11.5 /CUMM (4.8-10.8)
--- NOTE | 2018-01-31 11:16 | PN- Att Addend ---
Attending Addendum Attending Brief Note Patient seen and examined. Plan of care discussed with the medical team and the patient. Available lab work and radiology test reports were reviewed. Patient appears calm and cooperative and without any distress. He wants to go home today. Events over the weekend were reviewed with the team. Exam: General: Patient awake alert oriented without any distress; he is not tremulous CVS: S1 plus S2 without any murmur or gallops Chest: Few scattered crepitation without any wheeze. There is no respiratory distress. Abdomen: Soft non-tender, bowel sound present, no guarding or rebound; tremors of both hands are noted MEDICAL REVIEW SPECIALIST: Awake alert oriented without any focal neuro deficit and follows commands appropriately Extremities: No edema; no clubbing or cyanosis noted Assessment Patient is a 52-year-old male who has been abusing OxyContin up to 80 mg daily, Xanax up to 8 mg daily which he tapered off over 4 months. He has been using alcohol in heavy amounts with about 6-12 cans of beer per day and 1 pint of whiskey per day. He never underwent a rehabilitation and now is interested in detox and rehabilitation of his drug and alcohol problems. Patient also carries a diagnosis of PTSD. * Alcohol abuse * Narcotic abuse with OxyContin * Residents been abuse with Xanax which he stopped about 5 days ago on his own after gradually tapering Xanax dose over 4 months. Therefore patient does not appear to be at risk for benzo withdrawal seizures. His Ativan to be rapidly tapered down. * Cannabis abuse * History of PTSD * History of depression * History of cluster headaches Plan * Reduce Ativan to 1 mg 3 times a day today, twice a day 1 mg by mouth tomorrow and then 0.5 mg twice a day next day. * warm in worker and psychiatry evaluation done patient will follow with IOP * Continue folic acid Current Medications Sig/Tonya Start time Last Medication Dose Route Stop Time Status Admin Acetaminophen 650 MG Q6 PRN 01/27 1515 AC 01/29 PO 2131 Aspirin Buffered 81 MG DAILY 01/28 0900 AC 01/31 PO 0916 Baclofen 10 MG ONCE PRN 01/30 2000 DC 01/30 PO 01/30 2200 1555 Baclofen 10 MG TID 01/30 1034 DC 01/30 PO 1057 Diclofenac Sodium 1 TATIANA 4 TIMES/DAY PRN 01/28 0015 AC 01/28 TOP 0208 Enoxaparin Sodium 40 MG DAILY 01/28 0900 AC 01/31 SC 0916 Folic Acid 1 MG DAILY 01/27 1510 AC 01/31 PO 0916 Lorazepam 1 MG Q6 01/31 1200 AC PO Lorazepam 3 MG Q6 01/28 1200 DC 01/31 PO 0531 Lorazepam 0 Q1P PRN 01/27 1600 AC 01/30 IV 1911 Multivitamins 1 TAB DAILY 01/27 1514 AC 01/31 Therapeutic PO 0916 Omeprazole 40 MG DAILY AC 01/30 1034 AC 01/31 PO 0530 Thiamine HCl 100 MG DAILY 01/27 1510 AC 01/31 PO 0916 Laboratory Tests 01/31/18 0610: CBC w Diff NO MAN DIFF REQ, RBC 4.61 L, MCV 88.2, MCH 29.3, MCHC 33.2, RDW 14.5 , MPV 8.0, Gran % 64.7, Lymphocytes % 26.1, Monocytes % 7.3, Eosinophils % 1.5, Basophils % 0.4, Absolute Granulocytes 7.4 H, Absolute Lymphocytes 3.0, Absolute Monocytes 0.8 H, Absolute Eosinophils 0.2, Absolute Basophils 0 01/30/18 1350: Urine Opiates Screen < 100, Methadone Screen < 40, Barbiturate Screen < 60, Ur Phencyclidine Scrn < 6.00, Amphetamines Screen < 100, U Benzodiazepines Scrn < 85, Urine Cocaine Screen < 50, Urine Cannabis Screen > 80.00 H 01/29/18 0700: Total Testosterone Pending, Free Testosterone Pending, DHEA Sulfate Interp Pending, Hepatitis A IgM Ab NONREACTIVE, Hep Bs Antigen NONREACTIVE, Hep B Core IgM Ab Conf NONREACTIVE, Hepatitis C Antibody NONREACTIVE Vital Signs Date Time Temp Pulse Resp B/P B/P Pulse O2 O2 Flow FiO2 Mean Ox Delivery Rate 01/31 0640 97.7 58 16 104/70 98 Room Air 01/31 0225 98.9 88 18 112/60 98 Room Air 01/30 2212 99.3 87 18 110/54 98 Room Air 01/30 1429 99.0 107 20 100/60 98 01/30 1158 98.0 91 20 100/60 97 Intake & Output 01/31 1600 01/31 0800 01/31 0000 Intake Total 240 480 Output Total Balance 240 480 Intake, Oral 240 480 Total time spent in preparation for discharge plan, patient education, and CMR preparation was 35 minutes.
[2018-01-31] MEDS ORDERED: ALPRAZOLAM1 M2 PO (11:40)
--- NOTE | 2018-01-31 11:44 | Patient Discharge Instructions ---
Discharge Instructions General Discharge Information You were seen/treated for: Alcohol withdrawal Anxiety/depression Benzodiazepine abuse Watch for these problems: Altered mental status, drowsiness, chest pain ,anxiety, depression, nausea, vomiting and abdominal pain, difficulty in breathing. If you experience any of these symptoms come to ED or call to pcp. Special Instructions: Follow up with your pcp within one week. Follow up with psychiatry in one week. Follow up with Justin [facility] in one week. Diet Recommended Diet: Regular Activity Activity Self Limited: Yes Acute Coronary Syndrome Inclusion Criteria At DC or during hospital stay patient has or had the following: ACS DIAGNOSIS No Discharge Core Measures Meds if any: Prescribed or Continued at Discharge Meds if any: NOT Prescribed or Continued at Discharge Congestive Heart Failure Inclusion Criteria At DC or during hospital stay patient has or had the following: CHF DIAGNOSIS No Discharge Core Measures Meds if any: Prescribed or Continued at Discharge Meds if any: NOT Prescribed or Continued at Discharge Cerebrovascular accident Inclusion Criteria At DC or during hospital stay patient has or had the following: CVA/TIA Diagnosis No Discharge Core Measures Meds if any: Prescribed or Continued at Discharge Meds if any: NOT Prescribed or Continued at Discharge Venous thromboembolism Inclusion Criteria VTE Diagnosis No VTE Type NONE VTE Confirmed by (Test) NONE Discharge Core Measures - Per Current guidelines, there needs to be overlap - treatment for the first 5 days of Warfarin therapy. - If discharged on Warfarin prior to 5 days of - overlap therapy, the patient will need to be - assessed for post discharge needs including - *Post discharge parental anticoagulation - *Warfarin and/or parental anticoagulation education - *Follow up date to check INR post discharge At least 5 days overlap therapy as Inpatient No Meds if any: Prescribed or Continued at Discharge Note: Overlap Therapy is Warfarin and Anticoagulant Meds if any: NOT Prescribed or Continued at Discharge
[2018-01-31] MEDS ORDERED: ATIVAN1 M1 PO ×3 (11:57→12:30)
[2018-01-31] MEDS ORDERED: FOLIC ACID1 M1 PO (12:33)
--- NOTE | 2018-01-31 12:54 | Discharge Summary ---
Visit Information Visit Dates Admission Date: 01/27/18 Discharge Date: 01/31/18 Hospital Course Course Attending Physician: Jose D HALL,Shital Primary Care Physician: Pola Oviedo DO Hospital Course: 52 YO M nonsmoker with PMH of cluster headache, bronchitis, depression, PTSD and multiple surgeries due to trauma came to ED for alcohol detox. ED course: Vitals: Temperature 97.8, pulse 66, respiratory rate 18, blood pressure 102/66, oxygen saturation 98% on room air Labs: WBC count 11.6, hemoglobin 12.7, hematocrit 38.1, platelet count 373, sodium 143, potassium 4.0, anion gap 13, BUN 24, creatinine 1.0, glucose 71, AST 18, ALT 27, alkaline phosphatase 82, total bilirubin 0.3 Alcohol detox: Patient was placed on CIWA protocol and he was given scheduled doses of Ativan 2 mg every 6 hourly. Later on patient was found to having increased anxiety and tremors. His Ativan was increased to 3 mg every 6 hourly. He was given supplemental vitamin B12, thiamine and folic acid. IV Zofran was given as needed for nausea and vomiting. Initially patient was complaining of abdominal pain and having nausea and vomiting. Patient received IV gentle hydration. Later on his nausea and vomiting improved and patient was encouraged to take orally. His condition started to improve and he was given tapering dose of Ativan. He completed his detox and he was sent home with 4 more doses of Ativan to complete detox. The patient was hemodynamically stable and denied any suicidal ideation. He was discharged home. During the hospital stay patient was found to have some white powder on bed side and search was done. Urine toxicology was ordered that was positive for cannibis. Patient was instructed to follow his primary care physician and [facility] for alcohol dependency with in one week. Epigastric pain: Patient was complaining of epigastric pain intermittently. Probably due to chronic gastritis. Patient received omeprazole during hospital stay. His epigastric pain improved. After the discharge patient was not prescribed any omeprazole. Anxiety/depression: Patient having anxiety possibly due to generalized anxiety disorder. Psychiatric consult was obtained considering his anxiety/depression. Patient had history of benzodiazepine abuse and discontinued the use of xanax one week before admission. Patient was advised to avoid taking xanax any more and follow psychiatry in future for further recommendations. Psychiatry spoke to her and patient, states that he was never made a concerning statements regarding hurting himself or others. Psychiatry recommended testosterone and DHEA level that are pending, patient will follow the lab results as outpatient. Patient was instructed to follow psychiatry as outpatient. History of PTSD: Patient was on Xanax in the past for PTSD and he recently discontinued Xanax a week ago. Patient was instructed to follow psychiatry as outpatient for further recommendations and treatment for PTSD. DVT prophylaxis: Mechanical and subcutaneous Lovenox CODE STATUS: Full code Allergies: Coded Allergies: No Known Allergies (05/21/17) Pertinent Lab Results: WBC count 11.5, hemoglobin 13.5, hematocrit 40.7, platelet count 327, sodium 141 , potassium 4.4, BUN 18, creatinine 0.8, BUNs/creatinine ratio 22.5, glucose 71, AST 18, ALT 27 Disposition Summary Disposition Principal Diagnosis: Alcohol withdrawal Anxiety/depression Additional Diagnosis: H/O Benzodiazepine abuse Discharge Disposition: home or self care Discharge Instructions General Discharge Information Code Status: Full Code Patient's Diet: Regular diet Patient's Activity: Self-limited Follow-Up Instructions/Appts: Follow up with your pcp within one week. Follow up with psychiatry in one week. Follow up with [facility] in one week. Medications at Discharge Discharge Medications: Stop taking the following medications: Ascorbate Calcium (Vitamin C) 500 MG TABLET ORAL DAILY Continue taking these medications: Multivitamin (Daily Value) 1 EACH TABLET 1 Tablet ORAL DAILY Comments: Last Taken: 01/31/18 Time: 9:15AM Aspirin (Ecotrin*) 81 MG TABLET.DR 1 Tablet ORAL Every other day Comments: Last Taken: 01/31/18 Time: 9:15AM Start taking the following new medications: LORazepam (Ativan) 1 MG TAB 1 Tablet ORAL SEE INSTRUCTIONS Qty = 4 No Refills Instructions: please take 1 pill(1 mg tonight) 1 mg twice tomorrow(02/01/18) 1 MG (HALF PILL TWICE ) on 02/02/18 and then stop. Comments: Last Taken: 01/31/18 Time: 1207PM The following medications have been changed: Old: Folic Acid (Folic Acid) 0.4 MG TABLET 1 Tablet ORAL DAILY New: Folic Acid (Folic Acid) 1 MG TABLET 1 Tablet ORAL DAILY Qty = 30 Comments: Last Taken: 01/31/18 Time: 9:15AM Copies To: Pola Oviedo DO
== END 2018-01-31 13:56 | DRG 897 ==
LOC: ERH 23:18 → 2NA 01-27 13:11 → ERHI 01-27 13:11 → ENRESERV 01-27 15:00 → ENTRNSPT 01-27 17:22 → 2NA 01-27 17:44 → CMPTRNSPT 01-27 17:54 → ENPENDDIS 01-31 12:16 → 2NA 01-31 13:56
PROVIDERS: Emergency Medicine; Student in an Organized Health Care Education/Training Program
DX: F10.239 Alcohol dependence with withdrawal, unspecified (principal); F11.10 Opioid abuse, uncomplicated; F13.10 Sedative, hypnotic or anxiolytic abuse, uncomplicated; F43.10 Post-traumatic stress disorder, unspecified; G44.009 Cluster headache syndrome, unspecified, not intractable; Y90.0 Blood alcohol level of less than 20 mg/100 ml; F12.10 Cannabis abuse, uncomplicated; F32.9 Major depressive disorder, single episode, unspecified; F41.9 Anxiety disorder, unspecified
CPT/HCPCS: 2NASP; 36592; 80307; 82436; G0480; J1650; J3101; J3490